=== PATIENT | female | born 1965 | race Caucasian/White ===

== ENCOUNTER 2020-03-24 14:11 | Emergency (ER) | payer SELFPAY ==
--- NOTE | 2020-03-24 16:57 | RADIOLOGY REPORT (SQ) ---
EXAM DESCRIPTION: CT CERVICAL SPINE WITHOUT IMAGES COMPLETED DATE/TIME: 03/24/2020 4:26 pm REASON FOR STUDY: Fall COMPARISON: None. TECHNIQUE: Axial images acquired through the cervical spine without intravenous contrast. Images re viewed with lung, soft tissue and bone windows. Reconstructed coronal and sagittal MPR images review ed. Images stored on PACS. All CT scanners at this facility use dose modulation, iterative reconstruction, and/or weight based d osing when appropriate to reduce radiation dose to as low as reasonably achievable (ALARA). [facility]: Dose Right [facility]: CareDose [facility]: Dose Right [facility]: Teradose 4D [facility]: Content Circles RADIATION DOSE: CT Rad equipment meets quality standard of care and radiation dose reduction techniq ues were employed. CTDIvol: 17.5 mGy. DLP: 397 mGy-cm. mGy. LIMITATIONS: None. FINDINGS: ALIGNMENT: Mild straightening of the normal lordotic curvature may be due in part to patie nt positioning. MINERALIZATION: Normal. VERTEBRAL BODIES: No fractures or dislocation. DISCS: Mild loss of intervertebral disc height is seen at all levels with associated uncovertebral hy pertrophy. FACETS, LATERAL MASSES, POSTERIOR ELEMENTS: Facet arthropathy. No fractures. No dislocation. No ac minna findings. HARDWARE: None in the spine. VISUALIZED RIBS: No fractures. LUNG APICES AND SOFT TISSUES: No significant or acute findings. OTHER: Incidental note is made of posterior fusion of the T1 through T4 vertebral bodies. The wax cutter ior elements demonstrate complete fusion ; rudimentary discs are present. IMPRESSION: No evidence of acute osseous injury. 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 TECHNICAL DOCUMENTATION: JOB ID: [id number] Quality ID # [id number]: Final reports with documentation of one or more dose reduction techniques (e.g., Au tomated exposure control, adjustment of the mA and/or kV according to patient size, use of iterative reconstruction technique) 2010 [employer]- All Rights Reserved Reading location - IP/workstation name: [email or web address]
--- NOTE | 2020-03-24 17:52 | ER Document Report ---
ED Fall - General Chief Complaint: Head Injury Stated Complaint: FALL/HEAD PAIN Time Seen by Provider: 03/24/20 15:39 Primary Care Provider: JUAN SAUCEDO MD [ACTIVE STAFF] - Follow up as needed Mode of Arrival: Ambulatory Information source: Patient Notes: Patient is a 55-year-old female who comes to emergency room complaining of sustaining a fall with head trauma yesterday. Patient states that her daughter is a class a boxer and wanted her to take a boxing class. She went to a friend's boxing class and patient states she was doing some easy foot work and she got her feet tangled up and she fell backwards striking the back of her head on a thin carpet over cement floor. She denies having any loss of consciousness. She does state that she had a moment of seeing "stars". But then she recovered and felt okay. Throughout the night she sent a narcotic to keep waking herself up to make sure she was normal. Today she woke up she has a headache but denies any visual changes she also has difficulty turning her head or neck in any direction. She denies having loss of urine or stool. She states that she had a large bump on the back of her head after the occurrence but that is pretty much gone down. Her daughter actually made her come in because she was afraid that she may have hurt her head to the point that she needed evaluation. TRAVEL OUTSIDE OF THE [place] IN LAST 30 DAYS: No - HPI Occurred: Yesterday Where: Public place Context: Tripped Associated symptoms: Dazed/confused. denies: Lost consciousness, Difficulty breathing, Difficulty walking, Became dizzy/fainted, Blood in stool, Other Location of injury/pain: Head, Neck Quality of pain: Achy Severity: Moderate Pain Level: 3 Notes: Patient was placed in c-collar in ER triage - Related data Allergies/Adverse Reactions: acetaminophen [From Percocet] Allergy (Verified 05/26/16 06:10) Anesthetics - Amide Type Allergy (Verified 05/26/16 06:10) Anesthetics - Sandie Type- Parabens [Anesthetics - Sandie Type] Allergy (Verified 05/26/16 06:10) hydrocodone [From Vicodin] Allergy (Verified 05/26/16 06:10) oxycodone [From Percocet] Allergy (Verified 05/26/16 06:10) Home Medications: Metformin Past Medical History - General Information source: Patient - Social History Smoking Status: Never Smoker Frequency of alcohol use: None Drug Abuse: None Lives with: Family Family History: Arthritis, CAD, Hypertension, Malignancy, Thyroid Disfunction Endocrine Medical History: Reports: Hx Diabetes Mellitus Type 2 Musculoskeletal Medical History: Reports Hx Musculoskeletal Deformity - Carpal tunnel, Reports Hx Musculoskeletal Trauma - Rotator cuff injury an ankle fracture Traumatic Medical History: Reports: Hx Fractures Past Surgical History: Reports: Hx Section, Hx Hysterectomy, Hx Orthopedic Surgery - Ankle fracture, carpal tunnel, and rotator cuff of the left shoulder, Hx Tonsillectomy, Hx Tubal Ligation - Immunizations Hx Diphtheria, Pertussis, Tetanus Vaccination: Yes Review of Systems - Review of Systems Constitutional: No symptoms reported EENT: No symptoms reported Cardiovascular: No symptoms reported Respiratory: No symptoms reported Gastrointestinal: No symptoms reported Genitourinary: No symptoms reported Female Genitourinary: No symptoms reported Musculoskeletal: No symptoms reported Skin: No symptoms reported Hematologic/Lymphatic: No symptoms reported Neurological/Psychological: See HPI, Headaches -: Yes All other systems reviewed and negative Physical Exam - Vital signs Vitals: Temp Pulse Resp BP Pulse Ox 97.6 F 82 18 121/79 100 03/24/20 14:15 03/24/20 14:15 03/24/20 14:15 03/24/20 14:15 03/24/20 14:15 Interpretation: Normal - Notes Notes: PHYSICAL EXAMINATION: GENERAL: Well-appearing, well-nourished and in no acute distress. HEAD: Examination patient's head shows that in the superior portion of the occipital region patient has a small 2 x 3 cm minimal hematoma that is approximately half a centimeter deep. Slight abrasion to the top of it but no bleeding is noted. Mild tenderness to palpation but no crepitus is felt. EYES: Pupils equal round and reactive to light, extraocular movements intact, conjunctiva are normal. ENT: Nares patent, oropharynx clear without exudates. Moist mucous membranes. NECK: Examination of the neck shows patient have decreased range of motion in all planes. Patient has approximately 10 to 15 degrees of flexion extension before discomfort occurs. And she has only 5 to 10 degrees of rotation right or left without severe pain or discomfort. LUNGS: Breath sounds clear to auscultation bilaterally and equal. No wheezes rales or rhonchi. HEART: Regular rate and rhythm without murmurs ABDOMEN: Soft, nontender, nondistended abdomen. No guarding, no rebound. No masses appreciated. Female : deferred Musculoskeletal: Examination patient's lower extremities show she has bilateral DTRs that are normal. He has good vascular examination of the lower extremities. She has good strength against resistance in the lower extremities. Patient also has good sensation from the inner ankles to the groin as she does from the outer ankles to the hips. No sign of cauda equina syndrome. No sign of footdrop. NEUROLOGICAL: Normal speech, normal gait. Normal sensory, motor exams PSYCH: Normal mood, normal affect. SKIN: Warm, Dry, normal turgor, no rashes or lesions noted. Course - Re-evaluation Re-evalutation: 03/24/20 17:[address] of the neck showed no acute findings but it did show that she has a congenital abnormality at the thoracic T1-T4 of congenital fusion. This may be was causing her to have spasms in the upper shoulders and causing the discomfort and pain which is causing the headache. Put her on a muscle relaxer for this. - Vital Signs Vital signs: Temp Pulse Resp BP Pulse Ox 98.4 F 94 16 129/84 H 95 03/24/20 18:34 03/24/20 18:34 03/24/20 18:34 03/24/20 18:34 03/24/20 18:34 Discharge - Discharge Clinical Impression: Postconcussion syndrome, Fusion of spine, thoracic region Concussion Qualifiers: Encounter type: initial encounter Loss of consciousness presence/duration: without LOC Qualified Code(s): S06.0X0A - Concussion without loss of consciousness, initial encounter Cervical strain, acute Qualifiers: Encounter type: initial encounter Qualified Code(s): S16.1XXA - Strain of muscle, fascia and tendon at neck level, initial encounter Condition: Stable Disposition: HOME, SELF-CARE Instructions: Muscle Relaxers ([facility]), Muscle Strain ([facility]), Neck Injury (Cervical Strain) ([facility]) Additional Instructions: Home and rest. Medication as prescribed. As we also discussed you can use ice or moist heat on the area whichever feels better. I am giving the name of orthopedic doctors on-call you may want to follow-up with him if pain continues on. You can also take ibuprofen and Tylenol together 800 mg of ibuprofen along with the thousand milligrams of Tylenol every 8 hours for pain and discomfort. Do not exceed more than 4 g of Tylenol in a 24-hour period. Return to ER if having concerns or problems. Prescriptions: Methocarbamol [Robaxin 750 mg Tablet] 750 mg PO ASDIR PRN #21 tab PRN Reason: Forms: Elevated Blood Pressure, Return to Work Referrals: JUAN SAUCEDO MD [ACTIVE STAFF] - Follow up as needed
[2020-03-24 18:35] VITALS: BP 129/84
== END 2020-03-24 18:39 | disposition home or self-care (01) ==
LOC: ER 14:11
DX: S06.0X0A Concussion without loss of consciousness, initial encounter (principal); R51 Headache; R41.0 Disorientation, unspecified; W19.XXXA Unspecified fall, initial encounter; E11.9 Type 2 diabetes mellitus without complications; Z88.8 Allergy status to other drugs, medicaments and biological substances; S16.1XXA Strain of muscle, fascia and tendon at neck level, initial encounter; Z98.1 Arthrodesis status
CPT/HCPCS: 72125; 99284

== ENCOUNTER 2020-05-15 12:03 | Emergency (ER) | payer SELFPAY ==
[2020-05-15 12:14] VITALS: BP 121/78
--- NOTE | 2020-05-15 12:46 | ER Document Report ---
HPI - HPI Time Seen by Provider: 05/15/20 12:35 Pain Level: Denies Notes: CHIEF COMPLAINT: Multiple complaints HPI: 55-year-old female presenting for vertigo type symptoms over the last 2 months. Patient states she had a mechanical fall 2 months ago hitting the back of her head. States she was seen in the ER but never had a CT of her head at that time. States that when she is laying still she does not have any vertigo symptoms but if she rotates her head to the left or right the room will start spinning and she will become nauseated. Denies neck pain. States that she did have a fall with vertigo symptoms a week ago and injured her left knee. Patient has been able to walk. Has not seen a primary care provider or other provider for evaluation of her symptoms in the last 2 months, positive ROS: See HPI - all other systems were reviewed and are otherwise negative Constitutional: no fever Eyes: no drainage, no blurred vision ENT: no runny nose, no sore throat Cardiovascular: no chest pain Resp: no SOB, no cough GI: no vomiting, no diarrhea, no abdominal pain : no dysuria Integumentary: no rash Allergy: no hives Musculoskeletal: +. No nystagmus extremity pain or swelling Neurological: no numbness/tingling, no weakness vertigo symptoms MEDICATIONS: I agree with the patient medications as charted by the RN. ALLERGIES: I agree with the allergies as charted by the RN. PAST MEDICAL HISTORY/PAST SURGICAL HISTORY: Reviewed and agree as charted by RN. SOCIAL HISTORY: Reviewed and agree as charted by RN. FAMILY HISTORY: No significant familial comorbid conditions directly related to patient complaint EXAM: Reviewed vital signs as charted by RN. CONSTITUTIONAL: Alert and oriented and responds appropriately to questions. Well-appearing; well-nourished HEAD: Normocephalic; atraumatic EYES: PERRL; Conjunctivae clear, sclerae non-icteric ENT: normal nose; no rhinorrhea; moist mucous membranes; pharynx without lesions noted, no uvula edema or deviation, no tonsillar hypertrophy, phonation normal NECK: Supple without meningismus; non-tender; no cervical lymphadenopathy, no masses CARD: RRR; no murmurs, no clicks, no rubs, no gallops; symmetric distal pulses RESP: Normal chest excursion without splinting or tachypnea; breath sounds clear and equal bilaterally; no wheezes, no rhonchi, no rales, pulse oximetry 98% on room air not hypoxic ABD/GI: Normal bowel sounds; non-distended; soft, non-tender, no rebound, no guarding; no palpable organomegaly or masses. BACK: The back appears normal and is non-tender to palpation, there is no CVA tenderness EXT: Normal ROM in all joints; tenderness on palpation of the lateral and inf erior aspect of the left knee without visible edema or swelling; no cyanosis SKIN: Normal color for age and race; warm; dry; good turgor; no acute lesions noted NEURO: Moves all extremities equally; Motor and sensory function intact. CN II through XII grossly intact. Gait is normal. Strength equal 5/5 bilateral upper and lower extremities. PSYCH: The patient's mood and manner are appropriate. Grooming and personal hygiene are appropriate. MDM: 55-year-old female presenting with vertigo symptoms after head injury 2 months ago. No indication for imaging of the head at this time given the timeframe. Vertigo symptoms are not present when she is not moving the head. Patient likely needs referral to ENT and I will place her on Antivert. Patient also complaining of left knee injury a week ago. She has been ambulatory on it. She declines x-ray imaging aware I cannot rule out a fracture without imaging. Will refer to orthopedics - EENT EENT: REPORTS: Ear Pain - NEURO Neurology: REPORTS: Dizzinesss / Vertigo - REPRODUCTIVE Reproductive: DENIES: : - MUSCULOSKELETAL Musculoskeletal: REPORTS: Extremity pain Past Medical History - Social History Smoking Status: Never Smoker Family History: Arthritis, CAD, Hypertension, Malignancy, Thyroid Disfunction Endocrine Medical History: Reports: Hx Diabetes Mellitus Type 2 Musculoskeletal Medical History: Reports Hx Musculoskeletal Deformity - Carpal tunnel, Reports Hx Musculoskeletal Trauma - Rotator cuff injury an ankle fracture Traumatic Medical History: Reports: Hx Fractures Past Surgical History: Reports: Hx Section, Hx Hysterectomy, Hx Orthopedic Surgery - Ankle fracture, carpal tunnel, and rotator cuff of the left shoulder, Hx Tonsillectomy, Hx Tubal Ligation - Immunizations Hx Diphtheria, Pertussis, Tetanus Vaccination: Yes Vertical Provider Document - INFECTION CONTROL TRAVEL OUTSIDE OF THE [place] IN LAST 30 DAYS: No Course - Vital Signs Vital signs: Temp Pulse Resp BP Pulse Ox 97.5 F 97 20 121/78 98 05/15/20 12:13 05/15/20 12:13 05/15/20 12:13 05/15/20 12:13 05/15/20 12:13 Discharge - Discharge Clinical Impression: Vertigo Head injury due to trauma Qualifiers: Encounter type: initial encounter Qualified Code(s): S09.90XA - Unspecified injury of head, initial encounter Left knee injury Qualifiers: Encounter type: initial encounter Qualified Code(s): S89.92XA - Unspecified injury of left lower leg, initial encounter Condition: Stable Disposition: HOME, SELF-CARE Additional Instructions: Take Voltaren for the knee pain. Take meclizine for the vertigo symptoms. Follow-up with both ENT and orthopedics for further evaluation of your symptoms call for appointment Prescriptions: Meclizine HCl [Antivert 25 mg Tablet] 25 mg PO TID PRN #21 tablet PRN Reason: Diclofenac Sodium [Voltaren 50 Mg Tablet.] 50 mg PO BID #20 tablet. Referrals: SHILPA CERDA DO [ASSOCIATE] - Follow up as needed ROBBI OH DO [ACTIVE STAFF] - Follow up as needed
== END 2020-05-15 12:44 | disposition home or self-care (01) ==
LOC: ER 12:03
DX: S09.90XA Unspecified injury of head, initial encounter (principal); S89.92XA Unspecified injury of left lower leg, initial encounter; R42 Dizziness and giddiness; H92.09 Otalgia, unspecified ear; X58.XXXA Exposure to other specified factors, initial encounter; E11.9 Type 2 diabetes mellitus without complications
CPT/HCPCS: 99283